=== PATIENT | female | born 1945 | race Caucasian/White ===

== ENCOUNTER → 2017-05-27 13:34 | Outpatient (CLI) | payer MEDICARE, OTHER, SELFPAY ==
[2017-05-27 15:51] LABS: Absolute Lymphocyte Count 0.99 X10^3/ul (0.83-4.51); Absolute Neutrophil Count 5.5 X10^3/uL (2.0-7.7); Basophil# 0.02 X10^3/uL; Basophil% 0.3 % (0-1); Eosinophil# 0.02 X10^3/uL; Eosinophils% 0.3 % (0-5); Hematocrit 37.9 % (37-47); Hemoglobin 12.1 g/dl (12.0-15.0); Lymphocyte # 0.99 X10^3/ul (4.0); Lymphocyte % 14.2 % (19-41); Mean Corp Hgb Conc 31.9 g/gl (32-36); Mean Corpuscular Hgb 32.4 pg (27.0-32.0); Mean Corpuscular Volume 101.6 fL (81-99); Mean Platelet Vol. 9.1 fl (6.2-12.0); Monocyte# 0.43 X10^3/uL; Monocyte% 6.2 % (0-10); Neutrophil % 78.7 % (47-70); Platelet Count 271 K/mm3 (150-450); RBC Distribution Width CV 14.3 % (11.6-14.6); RBC Distribution Width SD 51.3 fl (35.1-43.9); Red Blood Count 3.73 M/mm3 (4.2-5.4)
[2017-05-27 15:52] LABS: POSITIVE COUNT NO; POSITIVE DIFFERENTIAL NO; POSITIVE MORPHOLOGY NO
[2017-05-27 16:20] LABS: ALB/GLOB Ratio 1.1 RATIO (0.9-2.4); AST(SGOT) 21 U/L (15-37); Alanine Aminotransfer ALT/SGPT 32 U/L (13-56); Albumin, Serum 3.5 g/dL (3.2-5.0); Alkaline Phosphatase 88 U/L (45-117); Anion Gap 5 (5-15); BUN 21 mg/dL (7-18); BUN/Creat Ratio 26.1 RATIO (10-20); Chloride 108 mmol/L (98-107); Creatinine, Serum 0.81 mg/dL (0.55-1.02); EST Glomerular Filtration Rate 74 mL/min (>60); Est Glom Filt Rate - Afr Amer 89 mL/min (>60); Globulin 3.3 g/dL (2.2-4.2); Glucose 89 mg/dL (74-106); Potassium 4.6 mmol/L (3.5-5.1); Protein, Total 6.8 g/dL (6.4-8.2); Sodium Level 144 mmol/L (136-145)
== END ==
PROVIDERS: Family Provider Internal Medicine; PCP Internal Medicine; Visit Provider Internal Medicine Rheumatology
DX: M06.09 Rheumatoid arthritis without rheumatoid factor, multiple sites (principal); Z79.899 Other long term (current) drug therapy; M15.9 Polyosteoarthritis, unspecified; I10 Essential (primary) hypertension; D35.2 Benign neoplasm of pituitary gland; E03.9 Hypothyroidism, unspecified; M47.897 Other spondylosis, lumbosacral region; E27.40 Unspecified adrenocortical insufficiency
CPT/HCPCS: 36415; 80053; 85025

== ENCOUNTER → 2017-10-13 10:20 | Outpatient (CLI) | payer MEDICARE, OTHER, SELFPAY ==
[2017-10-13 12:26] LABS: Absolute Neutrophil Count 13.7 X10^3/uL (2.0-7.7); Basophil# 0.03 X10^3/uL; Basophil% 0.2 % (0-1); Eosinophil# 0.23 X10^3/uL; Eosinophils% 1.4 % (0-5); Hematocrit 41.8 % (37-47); Hemoglobin 12.9 g/dl (12.0-15.0); Lymphocyte % 7.4 % (19-41); Mean Corp Hgb Conc 30.9 g/gl (32-36); Mean Corpuscular Hgb 30.6 pg (27.0-32.0); Mean Corpuscular Volume 99.3 fL (81-99); Mean Platelet Vol. 10.8 fl (6.2-12.0); Monocyte% 6.7 % (0-10); Neutrophil # 13.65 X10^3/uL (2.7-7.7); Neutrophil % 83.7 % (47-70); Platelet Count 134 K/mm3 (150-450); RBC Distribution Width CV 14.9 % (11.6-14.6); Red Blood Count 4.21 M/mm3 (4.2-5.4); White Blood Count 16.3 K/mm3 (4.4-11.0)
[2017-10-13 12:29] LABS: POSITIVE COUNT NO; POSITIVE DIFFERENTIAL NO; POSITIVE MORPHOLOGY NO
[2017-10-13 12:43] LABS: ALB/GLOB Ratio 0.9 RATIO (0.9-2.4); AST(SGOT) 141 U/L (15-37); Alanine Aminotransfer ALT/SGPT 197 U/L (13-56); Albumin, Serum 3.4 g/dL (3.2-5.0); Alkaline Phosphatase 485 U/L (45-117); Anion Gap 13 (5-15); BUN 19 mg/dL (7-18); BUN/Creat Ratio 17.3 RATIO (10-20); Calcium,Total 8.9 mg/dL (8.5-10.1); Chloride 101 mmol/L (98-107); EST Glomerular Filtration Rate 52 mL/min (>60); Est Glom Filt Rate - Afr Amer 62 mL/min (>60); Globulin 3.9 g/dL (2.2-4.2); Glucose 162 mg/dL (74-106); Potassium 4.4 mmol/L (3.5-5.1); Protein, Total 7.3 g/dL (6.4-8.2); Sodium Level 142 mmol/L (136-145)
== END ==
PROVIDERS: Family Provider Internal Medicine; PCP Internal Medicine; Visit Provider Internal Medicine Rheumatology
DX: M06.09 Rheumatoid arthritis without rheumatoid factor, multiple sites (principal); M15.9 Polyosteoarthritis, unspecified; I10 Essential (primary) hypertension; D35.2 Benign neoplasm of pituitary gland; E03.9 Hypothyroidism, unspecified; M47.897 Other spondylosis, lumbosacral region; E27.40 Unspecified adrenocortical insufficiency; Z79.899 Other long term (current) drug therapy
CPT/HCPCS: 36415; 80053; 85025

== ENCOUNTER 2017-10-13 16:03 | Emergency (ER) | payer MEDICARE, OTHER, SELFPAY ==
[2017-10-13 16:04] VITALS: BP 158/82; PULSE 110; RESP 18; TEMP 36.8; O2SAT 100; BMI 27.3
--- NOTE | 2017-10-13 17:55 | US_ITS ---
STUDY: ABDOMINAL ULTRASOUND - RIGHT UPPER QUADRANT REASON FOR VISIT: Female, 72 years old. Elevated liver enzymes. TECHNIQUE: Ultrasound evaluation of the right upper quadrant was performed with real-time and static malcolm-scale imaging. TECHNICAL QUALITY: Adequate. COMPARISON: CT scan 06/10/2015. FINDINGS: Liver: The liver measures 13.8 cm. There is a heterogeneous echogenicity of the liver. The bile ducts are within normal limits. There is hepatic color flow. The direction of portal flow is hepatopetal. Several hypoechoic masses are seen. One in the left lobe measures 1.4 cm. 2 in the right lobe measure 2.[address] with contrast is recommended. Gallbladder: Normal distended gallbladder. The gallbladder wall measures 2 mm. There is a negative sonographic Carrillo's sign. There is no pericholecystic fluid. There are no gallstones. There is mild sludge. Common Bile Duct (C.B.D.): The common bile duct measures 4 mm. Pancreas: Normal size of the head, body and tail of the pancreas. There is normal echogenicity of the pancreas. There is no demonstrated pancreatic mass or cyst. Right Kidney: Normal size of the right kidney. The right kidney measures 9.0 cm. Normal renal cortex. The right cortex measures 1.2 cm. There is no demonstrated renal mass or cyst. There is no right hydronephrosis. US/Gallbladder IMPRESSION: Abnormal appearance of the liver which is heterogeneous and appears to have some low-attenuation masses. CT with contrast is recommended. Mild sludge in the gallbladder. Electronically Signed: Chandler Gamino MD at 20:04 EDT , Service support ,
[2017-10-13 19:20] VITALS: PULSE 96; RESP 18; O2SAT 97
--- NOTE | 2017-10-13 20:54 | ED.VISSUMM ---
- ER Visit Summary Date of Service: 10/13/17 Chief Complaint: Abnormal labs History of Present Illness: The patient is a 72 F sent in by housekeeping attendant for abnormal labs of elevated white count along with a elevated liver enzymes. Patient history rheumatoid arthritis followed by Dr. Caballero. Patient is off Humira, she has been on Xeljanz for the past year. However she states she ran out 2 months ago due to a mixup. She saw her housekeeping attendant today. Labs were ordered prior to restarting and continuing her Xeljanz. Last blood draw was in May which was normal per patient. No fevers. No abdominal pain, nausea or vomiting. No recent diarrhea. Patient does take Percocet for breakthrough pain, she has been using it 3 times a day, denies any overuse. Denies alcohol use. No yellowing of skin. Physical Examination: General: Alert and oriented ?3, no acute distress HEENT: Normocephalic, atraumatic. Moist mucosa membranes. Normal conjunctiva. Neck: supple, nontender. Cardiovascular: Regular rate and rhythm, no murmurs Respiratory: Normal breath sounds, symmetric, no distress Abdomen: Soft, nontender, nondistended, no pain in right upper quadrant. Extremities: Nontender, no edema, pulses intact ?4 Neuro: no focal neurological deficits. Test Results: Hepatitis panel pending. Right upper quadrant ultrasound notes mild sludge of gallbladder, there is hypoechoic masses in the liver ?3. Emergency Department Course and Treatment: Outpatient labs from today evaluate no white count 16.7. ALP 45, ALT 197, AST 140s. Treatment Plan: Patient nontoxic, no right upper quadrant tenderness, no jaundice. I spoke with Dr. Caballero, rheumatology had concerns for potential liver etiologies with possible choledocholithiasis. However she has no pain or vomiting. She has been off Xeljanz for 2 months. She does not wish to continue this or any immunosuppressants at this time. She is okay continue her low-dose prednisone. She defers to medicine for workup of transaminitis. I discussed with PCP Dr. Argueta who is aware of the labs and discuss with her housekeeping attendant. With patient already being here she agrees with sending for hepatitis panel which is pending. Right upper quadrant ultrasound was obtained with mild sludge with 3 hypoechoic masses in the liver. This was relayed with the patient to follow-up as an outpatient to be seen on . Prescription oxycodone without the Tylenol will be written for pain control. All questions were answered. Disposition: Discharge Impression: 1. Transaminitis 2. Hyper echoic liver masses This note was generated with [employer] dictation software. It may contain incorrect words, spelling, and punctuation that were not noted in review of the chart prior to signing ED Disposition - Plan for ED Patient: Disposition: Home or Assisted Living Chief Complaint: Abn Labs Diagnosis: Transaminitis, Lesion of liver Prescriptions: Oxycodone [Oxyir] 5 mg PO Q6H PRN PRN #20 tablet PRN Reason: Pain Referrals: Amelia Argueta MD [Primary Care Provider] - 2 Days Additional Instructions: Avoid Tylenol products. Hepatitis panel pending. Ultrasound gallbladder notes mild sludge, there are liver lesions noted ?3. Call on to be seen by Dr. Argueta.
--- NOTE | 2017-10-13 21:02 | ED.DCSUM_ITS ---
- ER Visit Summary Date of Service: 10/13/17 Chief Complaint: Abnormal labs History of Present Illness: The patient is a 72 F sent in by sr. media manager for abnormal labs of elevated white count along with a elevated liver enzymes. Patient history rheumatoid arthritis followed by Dr. Caballero. Patient is off Humira, she has been on Xeljanz for the past year. However she states she ran out 2 months ago due to a mixup. She saw her sr. media manager today. Labs were ordered prior to restarting and continuing her Xeljanz. Last blood draw was in May which was normal per patient. No fevers. No abdominal pain, nausea or vomiting. No recent diarrhea. Patient does take Percocet for breakthrough pain, she has been using it 3 times a day, denies any overuse. Denies alcohol use. No yellowing of skin. Physical Examination: General: Alert and oriented ?3, no acute distress HEENT: Normocephalic, atraumatic. Moist mucosa membranes. Normal conjunctiva. Neck: supple, nontender. Cardiovascular: Regular rate and rhythm, no murmurs Respiratory: Normal breath sounds, symmetric, no distress Abdomen: Soft, nontender, nondistended, no pain in right upper quadrant. Extremities: Nontender, no edema, pulses intact ?4 Neuro: no focal neurological deficits. Test Results: Hepatitis panel pending. Right upper quadrant ultrasound notes mild sludge of gallbladder, there is hypoechoic masses in the liver ?3. Emergency Department Course and Treatment: Outpatient labs from today evaluate no white count 16.7. ALP 45, ALT 197, AST 140s. Treatment Plan: Patient nontoxic, no right upper quadrant tenderness, no jaundice. I spoke with Dr. Caballero, rheumatology had concerns for potential liver etiologies with possible choledocholithiasis. However she has no pain or vomiting. She has been off Xeljanz for 2 months. She does not wish to continue this or any immunosuppressants at this time. She is okay continue her low-dose prednisone. She defers to medicine for workup of transaminitis. I discussed with PCP Dr. Argueta who is aware of the labs and discuss with her sr. media manager. With patient already being here she agrees with sending for hepatitis panel which is pending. Right upper quadrant ultrasound was obtained with mild sludge with 3 hypoechoic masses in the liver. This was relayed with the patient to follow-up as an outpatient to be seen on . Prescription oxycodone without the Tylenol will be written for pain control. All questions were answered. Disposition: Discharge Impression: 1. Transaminitis 2. Hyper echoic liver masses This note was generated with [employer] dictation software. It may contain incorrect words, spelling, and punctuation that were not noted in review of the chart prior to signing ED Disposition - Plan for ED Patient: Disposition: Home or Assisted Living Chief Complaint: Abn Labs Diagnosis: Transaminitis, Lesion of liver Prescriptions: Oxycodone [Oxyir] 5 mg PO Q6H PRN PRN #20 tablet PRN Reason: Pain Referrals: Amelia Argueta MD [Primary Care Provider] - 2 Days Additional Instructions: Avoid Tylenol products. Hepatitis panel pending. Ultrasound gallbladder notes mild sludge, there are liver lesions noted ?3. Call on to be seen by Dr. Argueta.
[2017-10-13 21:17] VITALS: BP 141/103; PULSE 91; RESP 18; O2SAT 96
[2017-10-16 04:08] LABS: HEPATITIS B SURFACE AG Negative (Negative); Hepatitis A IgM Antibody Negative (Negative); Hepatitis B Core AB IgM Negative (Negative)
[2017-10-16 11:59] LABS: Hep C Antibodies <0.1 s/co ratio (0.0-0.9)
== END 2017-10-13 21:18 | disposition home or self-care (01) ==
PROVIDERS: Emergency Provider Emergency Medicine; Family Provider Internal Medicine; PCP Internal Medicine
DX: D72.829 Elevated white blood cell count, unspecified (principal); R16.0 Hepatomegaly, not elsewhere classified; M06.9 Rheumatoid arthritis, unspecified; J44.9 Chronic obstructive pulmonary disease, unspecified; E11.9 Type 2 diabetes mellitus without complications; I10 Essential (primary) hypertension; E03.9 Hypothyroidism, unspecified; Z72.0 Tobacco use; M06.09 Rheumatoid arthritis without rheumatoid factor, multiple sites; M15.9 Polyosteoarthritis, unspecified; D35.2 Benign neoplasm of pituitary gland; M47.897 Other spondylosis, lumbosacral region; E27.40 Unspecified adrenocortical insufficiency; Z79.899 Other long term (current) drug therapy
CPT/HCPCS: 36415; 76705; 80053; 80074; 85025; 99282

== ENCOUNTER 2017-10-27 06:31 | Inpatient (IN) | payer MEDICARE, OTHER, SELFPAY ==
[2017-10-27] VITALS (12 sets, daily range): BP systolic 125–172; BP diastolic 58–77; PULSE 87–100; RESP 14–18; TEMP 37.2–37.4; O2SAT 93–97; BMI 25.4; BMI 25.0
[2017-10-27 06:40] LABS: Bedside Glucose 73 mg/dL (70-110)
--- NOTE | 2017-10-27 06:41 | NURSING ---
NO LW OR POA
--- NOTE | 2017-10-27 06:49 | EKG12_ITS ---
Test Reason : OVERDOSE Blood Pressure : / mmHG Vent. Rate : 082 BPM Atrial Rate : 082 BPM P-R Int : 154 ms QRS Dur : 070 ms QT Int : 376 ms P-R-T Axes : 051 013 039 degrees QTc Int : 439 ms Normal sinus rhythm Normal ECG Confirmed by ASTRID SANTOS, CECIL ([id number]), industrial editor KUMAR TOWNSEND ([id number]) on 10/30/2017 1:22:19 PM Referred By: JULIANA Confirmed By:CECIL RESENDIZ MD
--- NOTE | 2017-10-27 06:49 | CT_ITS ---
STUDY: CT BRAIN WITHOUT CONTRAST REASON FOR EXAM: Female, 72 years old. Status post fall, took too many oxycodone. History of diabetes, hypertension, rheumatoid, COPD, CAD. RADIATION DOSAGE (If Supplied By Facility): CTDIvol = ( 60.81 ) mGy, DLP = ( 1468.02 ) mGycm TECHNIQUE: Transaxial CT imaging of the brain was performed without administration of intravenous contrast material. Multiplanar coronal and sagittal images were reformatted. Individualized dose optimization techniques were used for this CT. COMPARISON: None. FINDINGS: Normal soft tissue structures. Normal calvarium. There is mild cerebral atrophy with widening of the extra-axial spaces and ventricular dilatation. There are areas of decreased attenuation within the white matter tracts of the supratentorial brain, consistent with microvascular disease changes. Remote infarct right thalamus. Normal brainstem. There is mild cerebellar atrophy. There is no intracranial hemorrhage. There are no findings of an acute ischemic infarction. Normal visualized paranasal sinuses. Mild chronic opacification right inferior mastoid air cells. The left mastoid air cells. CT/Brain/Head without Contrast IMPRESSION: Chronic involutional changes of the brain. 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 There is no acute intracranial pathology. Electronically Signed: Pratibha De La Cruz MD at 7:47 EDT , Service support ,
--- NOTE | 2017-10-27 06:49 | RAD_ITS ---
STUDY: X-RAY CHEST REASON FOR EXAM: Female, 72 years old. Back pain and recent fall. TECHNIQUE: Single AP portable view of the chest. COMPARISON: February 14, 2016. FINDINGS: The lungs are hyperexpanded. There is subtle interstitial thickening present in both lungs. There is no demonstrated pleural abnormality. Normal size heart. Normal mediastinum and pretty. Normal visualized pulmonary arteries. There is atherosclerotic calcification of the aortic arch with tortuosity. There is demineralization of the osseous structures. There appears to be a neurostimulator within the midthoracic spinal canal. There is mild curvature of the thoracic spine with convexity towards the right. There are mild degenerative changes of both shoulders. There is no demonstrated abnormality of the visualized soft tissue structures of the upper abdomen. RAD/Chest 1 View (Portable) IMPRESSION: No radiographic evidence of acute cardiopulmonary disease. Electronically Signed: Jaylyn Iglesias MD at 7:38 EDT , Service support ,
--- NOTE | 2017-10-27 06:55 | ED.VISSUMM ---
- ER Visit Summary Date of Service: 10/27/17 Chief Complaint: [Fall and general weakness] History of Present Illness: The patient is a 72 F [presents the emergency department with complaint of a fall this morning. Patient states that she could not get back up and she could not get her to help her because he is deaf and had his cochlear implant out for the night. Patient apparently called her brother who told her to call EMS. Eventually patient was able to get up and use the phone to call EMS. Patient also gives history of chronic pain issues related to arthritis and chronic back pain. Patient has had her medications changed around recently by Dr. Hassan. Patient does take narcotic pain medications but denies taking any more than she is prescribed. Apparently patient's brother had mentioned that he was concerned that the patient was taken to much narcotic pain medicine.] states that he feels the patient should be admitted to assisted as she can only ambulate with assistance and he believes she would benefit from placement. Physical Examination: [HEENT-PERRLA, EOMI. Cranial nerves II through XII grossly intact. TMs clear. Mucous membranes moist. No adenopathy. Cardiovascular-regular rate and rhythm without murmur or ectopy Lungs-clear to auscultation, chest wall stable without crepitus or subcu emphysema Abdomen-normoactive bowel sounds, soft, nontender, no rebound or rigidity, no peritoneal signs. Extremities-intact ?4, normal range of motion, normal pulses, atraumatic] Test Results: [Pending] Emergency Department Course and Treatment: [Care of patient turned over to morning physician awaiting lab results, CT scan of the brain without contrast, and final disposition.] Treatment Plan: [] Disposition: [] Impression: [] This note was generated with [employer] dictation software. It may contain incorrect words, spelling, and punctuation that were not noted in review of the chart prior to signing ED Disposition - Plan for ED Patient: Chief Complaint: Overdose Referrals: Amelia Argueta MD [Primary Care Provider] -
--- NOTE | 2017-10-27 06:59 | ED.DCSUM_ITS ---
- ER Visit Summary Date of Service: 10/27/17 Chief Complaint: [Fall and general weakness] History of Present Illness: The patient is a 72 F [presents the emergency department with complaint of a fall this morning. Patient states that she could not get back up and she could not get her to help her because he is deaf and had his cochlear implant out for the night. Patient apparently called her brother who told her to call EMS. Eventually patient was able to get up and use the phone to call EMS. Patient also gives history of chronic pain issues related to arthritis and chronic back pain. Patient has had her medications changed around recently by Dr. Hassan. Patient does take narcotic pain medications but denies taking any more than she is prescribed. Apparently patient's brother had mentioned that he was concerned that the patient was taken to much narcotic pain medicine.] states that he feels the patient should be admitted to residential as she can only ambulate with assistance and he believes she would benefit from placement. Physical Examination: [HEENT-PERRLA, EOMI. Cranial nerves II through XII grossly intact. TMs clear. Mucous membranes moist. No adenopathy. Cardiovascular-regular rate and rhythm without murmur or ectopy Lungs-clear to auscultation, chest wall stable without crepitus or subcu emphysema Abdomen-normoactive bowel sounds, soft, nontender, no rebound or rigidity, no peritoneal signs. Extremities-intact ?4, normal range of motion, normal pulses, atraumatic] Test Results: [Pending] Emergency Department Course and Treatment: [Care of patient turned over to morning physician awaiting lab results, CT scan of the brain without contrast, and final disposition.] Treatment Plan: [] Disposition: [] Impression: [] This note was generated with [employer] dictation software. It may contain incorrect words, spelling, and punctuation that were not noted in review of the chart prior to signing ED Disposition - Plan for ED Patient: Chief Complaint: Overdose Referrals: Amelia Argueta MD [Primary Care Provider] -
[2017-10-27] MEDS: 0.9% Normal Saline 1,000 ML 150 ML IV (07:01)
[2017-10-27 07:03] LABS: Absolute Lymphocyte Count 1.32 X10^3/ul (0.83-4.51); Absolute Neutrophil Count 11.2 X10^3/uL (2.0-7.7); Basophil# 0.02 X10^3/uL; Basophil% 0.1 % (0-1); Eosinophil# 0.42 X10^3/uL; Hematocrit 39.1 % (37-47); Hemoglobin 12.7 g/dl (12.0-15.0); Lymphocyte # 1.32 X10^3/ul (4.0); Lymphocyte % 9.3 % (19-41); Mean Corp Hgb Conc 32.5 g/gl (32-36); Mean Corpuscular Volume 92.4 fL (81-99); Mean Platelet Vol. 10.4 fl (6.2-12.0); Monocyte# 1.05 X10^3/uL; Monocyte% 7.4 % (0-10); Neutrophil # 11.23 X10^3/uL (2.7-7.7); Neutrophil % 79.6 % (47-70); POSITIVE COUNT NO; POSITIVE DIFFERENTIAL NO; POSITIVE MORPHOLOGY NO; Platelet Count 58 K/mm3 (150-450); RBC Distribution Width CV 15.4 % (11.6-14.6); RBC Distribution Width SD 52.1 fl (35.1-43.9); Red Blood Count 4.23 M/mm3 (4.2-5.4); White Blood Count 14.1 K/mm3 (4.4-11.0)
[2017-10-27 07:07] LABS: Bacteria 0 SEEN /hpf (None Seen); Mucous, Urine 0 SEEN /hpf (<or=2+); Red Blood Cells-Urine 0 SEEN /hpf (0-5); Squamous Epithelial Cells - UA 0 SEEN /hpf (5-10); White Blood Cells 0 SEEN /hpf (0-5)
[2017-10-27 07:16] LABS: Color, Urine Yellow (Yellow); Glucose, Dipstick NEGATIVE (Normal); Ketone-Dipstick 5 mg/dl (Negative); Leukocyte Esterase-Dipstick Negative /ul (Negative); Nitrite-Dipstick Negative (Negative); Occult Blood-Urine Negative /ul (Negative); Protein-Dipstick 15 mg/dl (Negative); Specific Gravity, Urine 1.015 (1.002-1.030); Urine Bilirubin Dipstick Negative (Negative); Urine Clarity Clear (Clear); Urine Urobilinogen Normal (Normal)
[2017-10-27 07:18] LABS: ALB/GLOB Ratio 0.7 RATIO (0.9-2.4); AST(SGOT) 107 U/L (15-37); Alanine Aminotransfer ALT/SGPT 114 U/L (13-56); Albumin, Serum 2.9 g/dL (3.2-5.0); Alkaline Phosphatase 559 U/L (45-117); Anion Gap 10 (5-15); BUN 34 mg/dL (7-18); BUN/Creat Ratio 27.6 RATIO (10-20); Chloride 98 mmol/L (98-107); Creatinine, Serum 1.23 mg/dL (0.55-1.02); EST Glomerular Filtration Rate 45 mL/min (>60); Est Glom Filt Rate - Afr Amer 55 mL/min (>60); Estimated Creatinine Clearance 28.82 ml/min; Globulin 3.9 g/dL (2.2-4.2); Glucose 105 mg/dL (74-106); Lipase 126 U/L (73-393); Potassium 4.1 mmol/L (3.5-5.1); Protein, Total 6.8 g/dL (6.4-8.2); Sodium Level 134 mmol/L (136-145)
--- NOTE | 2017-10-27 10:16 | NURSING ---
DR RICHARD CANALES
--- NOTE | 2017-10-27 10:18 | ED.VISSUMM ---
- ER Visit Summary Date of Service: 10/27/17 Addendum patient was signed over to me. She was found to have an intermediate troponin and thrombocytopenia, I will admit for further workup of these, I also have social work starting on placement to senior care. This note was generated with [employer] dictation software. It may contain incorrect words, spelling, and punctuation that were not noted in review of the chart prior to signing ED Disposition - Plan for ED Patient: Chief Complaint: Overdose Referrals: Amelia Argueta MD [Primary Care Provider] -
--- NOTE | 2017-10-27 10:18 | NURSING ---
MED SURG INT TROP, WEAKNESS PARKER/RICHARD
--- NOTE | 2017-10-27 10:19 | PCM.HP.STD ---
Problem List (1) General weakness Status: Acute (2) Benign essential hypertension Status: Chronic (3) Chronic obstructive lung disease Status: Chronic (4) Hypothyroidism Status: Chronic (5) Rheumatoid arthritis Status: Chronic (6) Type II diabetes mellitus Status: Chronic History of Present Illness Date of Admission: 10/27/17 Chief Complaint: Generalized body aches The patient is a 72 year old F with past medical history significant for hypertension, hypothyroidism, rheumatoid arthritis who presented with generalized body aches. Patient reports increasing pain since been taking of her Biologics for her rheumatoid arthritis by her ice resurfacing machine operators. She had apparently been started on tapering dose of steroid to help with inflammation however her pain continues to worsen. Patient also reports findings of liver lesions necessitating the discontinuation of the above medications. Her PCP had also found a breast mass for which patient was due to undergo evaluation. She was seen and evaluated in the emergency department found to have indeterminant troponin decision was made to admit patient for subsequent management in the hospital. Past Medical History Past Medical History (Chronic Problems): Chronic Problems Diastasis recti (Chronic) Type II diabetes mellitus (Chronic) Chronic obstructive lung disease (Chronic) Hypothyroidism (Chronic) Rheumatoid arthritis (Chronic) Benign essential hypertension (Chronic) Allergies shellfish derived Allergy (Verified 10/27/17 06:36) Shortness of breath Sulfa (Sulfonamide Antibiotics) Allergy (Verified 10/27/17 06:36) Rash furosemide [From Lasix] Adverse Reaction (Verified 10/27/17 06:36) Itching Home Medications: Ambulatory Orders Medication Instructions Recorded Levothyroxine [Synthroid] 75 mcg PO UD 05/18/14 Potassium Chloride [K-Dur] 20 meq PO DAILY 05/18/14 Valsartan [Diovan] 320 mg PO DAILY 05/18/14 Gabapentin [Neurontin] 600 mg PO TID PRN 08/18/14 Zolpidem Tartrate [Ambien] 10 mg PO QHS 08/18/14 Albuterol IH (ProAir) [Proair Hfa] 1 - 2 puff INHALATION Q4H PRN PRN 12/29/14 Aspirin [Aspirin, Baby] 81 mg PO DAILY@0800 12/29/14 Ondansetron [Zofran] 8 mg PO Q8H PRN PRN #30 tablet 12/30/14 Pantoprazole Sodium [Protonix] 40 mg PO BID #90 tablet 12/30/14 predniSONE tablet 5 mg PO BIDCM 01/19/16 Atorvastatin Calcium [Lipitor] 10 mg PO QHS 10/27/17 Duloxetine Hcl [Cymbalta] 60 mg PO BID 10/27/17 Fluticasone/Vilanterol [Breo 1 each IH DAILY 10/27/17 Ellipta 200-25 Mcg INH] Folic Acid 1 mg PO BIDCM 10/27/17 Oxycodone HCl/Acetaminophen 1 tablet PO Q6H PRN PRN 10/27/17 [Percocet 5/325] Tofacitinib Citrate [Xeljanz Xr] 11 mg PO DAILY 10/27/17 Umeclidinium [place] [Incruse 62.5 mcg IH DAILY 10/27/17 Ellipta] predniSONE tablet 2.5 mg PO QHS 10/27/17 Surgical History: hysterectomy, total hip arthroplasty, - - Back surgery. 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 LOAN ORIGINATOR history Smoking Status: Former smoker - *Family History Maternal History Items: No pertinent history Paternal History Items: No pertinent history Review of Systems Constitutional: Reports: Anorexia, Malaise, Weakness, Fatigue HEENT: Denies: Head Aches, Sinus Congestion, Sinus Drainage Cardiovascular: Reports: Chest Pain Respiratory: Denies: Cough, Shortness of breath at rest, Shortness of breath upon exertion, Sputum production Gastrointestinal: Denies: Abdominal Pain, Hematemesis, Hematochezia, Nausea, Melena, Vomiting Genitourinary: Denies: Dysuria, Frequency, Hematuria, Urgency Musculoskeletal: Reports: Joint Pain Skin: Denies: Rash Neurological: Denies: Focal weakness, Numbness, Tingling Psychiatric: Reports: Anxiety Hematologic/ Lymphatic: Denies: Easy Bruising, Easy Bleeding VTE Information - Inpt Only VTE Present on Admission: No VTE Mechan Device Prophylaxis: Knee High LARRY Hose VTE Pharm Prophylaxis ordered?: Yes Patient Problems: Active and Suspected Problems General weakness (Acute) Objective: GENERAL: cooperative HEENT: Clear conjunctiva, NECK; supple, normal thyroid, CHEST: Clear to auscultation bilaterally, HEART: Regular S1 S2, no audible murmurs ABDOMEN: soft, non-tender, normoactive bowel sounds, RECTAL: deferred EXTREMITIES: No edema, no clubbing, no cyanosis. SENIOR MAINTENANCE MACHINIST: Awake; no lateralizing signs. SKIN: No Rash - Physical Exam Vital Signs Temp Pulse Resp BP Pulse Ox 99.3 F H 87 14 153/58 H 97 10/27/17 06:32 10/27/17 08:43 10/27/17 08:43 10/27/17 08:43 10/27/17 08:43 Oxygen Delivery Method Room Air Weight: 59 kg Body Mass Index (BMI) 25.4 Laboratory Tests Past 24 Hrs 10/27/17 10/27/17 10/27/17 06:40 06:40 07:00 WBC 14.1 H RBC 4.23 Hgb 12.7 Hct 39.1 MCV 92.4 MCH 30.0 MCHC 32.5 RDW 15.4 H RDW Differential 52.1 H Plt Count 58 L MPV 10.4 Immature Gran % (Auto) 0.600 Neut % (Auto) 79.6 H Lymph % (Auto) 9.3 L Evans % (Auto) 7.4 Eos % (Auto) 3.0 Baso % (Auto) 0.1 Absolute Neuts (auto) 11.2 H Absolute Lymphs (auto) 1.32 Total Counted Not Reportable Sodium 134 L Potassium 4.1 Chloride 98 Carbon Dioxide 26.0 Anion Gap 10 BUN 34 H Creatinine 1.23 H Estim Creat Clear Calc 28.82 Est GFR (MDRD) Af Amer 55 L Est GFR (MDRD) Non-Af 45 L BUN/Creatinine Ratio 27.6 H Glucose 105 Calcium 9.0 Total Bilirubin 1.00 AST 107 H ALT 114 H Alkaline Phosphatase 559 H Troponin I 0.071 H Total Protein 6.8 Albumin 2.9 L Globulin 3.9 Albumin/Globulin Ratio 0.7 L Lipase 126 Urine Color Yellow Urine Clarity Clear Urine pH 5.0 Ur Specific [place] 1.015 Urine Protein 15 H Urine Glucose (UA) NEGATIVE Urine Ketones 5 H Urine Occult Blood Negative Urine Nitrite Negative Urine Bilirubin Negative Urine Urobilinogen Normal Ur Leukocyte Esterase Negative Urine RBC 0 SEEN Urine WBC 0 SEEN Ur Squamous Epith Cells 0 SEEN Urine Bacteria 0 SEEN Urine Mucus 0 SEEN POC Glucose 10/27/17 06:37 POC Glucose 73 Assessment/Plan All Active Problems General weakness (Acute) Intractable nausea (Acute) Cellulitis (Acute) Nausea & vomiting (Resolved) Patient is a 72-year-old lady with past medical history significant for hypertension, chronic pain syndrome, rheumatoid arthritis, who presents with progressive generalized weakness found to have elevated troponin on admission 1. Adult failure to thrive in the context of multiple medical comorbidities patient has been admitted to monitored bed requested for PT OT evaluation and director social welfare to assist with discharge plan 2. Elevated troponin suspected to be secondary to demand ischemia. 3. Elevated d-dimer CT of the chest with contrast ordered to rule out PE 4. Thrombocytopenia consult placed to oncology 5. Right breast mass suspected to be malignant did discuss with patient PCP Dr. Argueta plan is for patient to be evaluated by general surgery and oncology as outpatient 6. COPD did continue with patient home aerosol regimen, please on supplemental oxygen titrated to keep oxygen saturation greater than 90 7. Hypertension-blood pressure controlled, home medications continued with dose adjustment as needed 8. Chronic pain syndrome 6. Depression patient is on Cymbalta 10. Hypothyroidism-patient is on levothyroxine home dose continued 11. Rheumatoid arthritis patient is followed by Dr. Lui as outpatient 12. DVT prophylaxis held off initiating chemoprophylaxis in view of patient significant low platelet count Code Visit Inpatient E&M: 72192 Init Hosp L3
--- NOTE | 2017-10-27 10:20 | NURSING ---
GEN WEAKNESS, ELEVATED TROP PCU [facility]
--- NOTE | 2017-10-27 10:26 | CM.ED ---
CM INITIAL ASSESSMENT: Patient evaluated in the ED with and sister, Vanessa, at bedside. Home: Patient states she lives in a two story home with her . There are approximately 10 steps in the home. Concern expressed that patient's is deaf. Patient fell last night and was unable to get her 's attention for help. HHS/Aides: Denies DME: Patient states she uses a cane. She states she had to begin using a walker yesterday. PCP: Dr. Argueta Patient states that, in August, Dr. Argueta changed her RA medications due to her abnormal liver tests. She states she's had increasing pain and functional decline since then. Patient fell last night, attempting to get to the restroom, and was unable to get the attention of her deaf . Patient and family state they feel she needs SNF placement. Her preference would be [facility]. She was a resident, in assisted living, there previously. I discussed Medicare requirements and that we cannot guarantee the patient will have a qualifying stay for SNF coverage. All present state understanding. DC Plan: Undetermined. Potentially SNF. Preference [facility], if SNF recommended. CM will continue to follow for safe and effective discharge planning.
[2017-10-27] MEDS: Morphine 2 MG/ML Syringe IV ×2 (10:31→14:17)
--- NOTE | 2017-10-27 10:49 | NURSING ---
[id number] called er electrical discharge machine operator to accept patient
--- NOTE | 2017-10-27 11:18 | CT_ITS ---
STUDY: CTA OF THE ABDOMINAL AORTA AND BILATERAL LOWER EXTREMITIES REASON FOR EXAM: Female, 72 years old. Liver mass. RADIATION DOSAGE (If Supplied By Facility): CTDIvol = ( 11.44 ) mGy, DLP = ( 980.11 ) mGycm TECHNIQUE: Axial CT angiography multi-detector data acquisition was obtained from the diaphragm to the ischial tuberosities following intravenous administration of 100 ml of Isovue 370 contrast. Axial images and MIP images were reconstructed from the axial data set. Post-processing of the angiographic images was performed, with multiplanar reformation and 3D reconstruction. Individualized dose optimization techniques were used for this CT. TECHNICAL QUALITY: Good COMPARISON: CT of the abdomen, June 10, 2015. Abdominal ultrasound, October 13, 2017. Descriptors of Narrowing: None (0%) Mild (< 50%) Moderate (50-70%) Severe (70-90%) Subtotal/Total Occlusion (90-100%) Non-Evaluable (technically non-diagnostic FINDINGS: Abdominal aorta: There is diffuse atherosclerotic changes of the abdominal aorta with mild tortuosity. There is no stricture aneurysm or dissection. Celiac and superior mesenteric arteries: No demonstrated narrowing. Inferior mesenteric artery: No demonstrated narrowing. Right renal artery(arteries): There is atherosclerotic changes without significant stenosis. Left renal artery(arteries): Atherosclerotic changes of mild stenosis. Right common iliac artery: Atherosclerotic changes with mild stenosis. Right external iliac artery: No demonstrated narrowing. Right internal iliac artery: Atherosclerotic changes with mild stenosis. Left common iliac artery: Atherosclerotic changes with minimal stenosis. Left external iliac artery: No demonstrated narrowing. Left internal iliac artery: Atherosclerotic changes with mild stenosis. The lung bases are clear. The heart is normal size. There is a large type I hiatal hernia in the retrocardiac space. The liver is normal in size and contour. There are multiple hypodensities throughout the liver with the appearance of metastatic disease. The largest, in segment 6 of the liver measures 3.9 x 3 x 3.3 cm. There is no enhancing mass. There is no biliary ductal dilatation. The gallbladder and extrahepatic biliary ductal system is unremarkable. There is asymmetric enhancement of the spleen which may be secondary to infarction. There is a single calcified granuloma is seen within the spleen. There is a 3 x 3.3 x 2.8 cm nonenhancing hypointense mass in the tail the pancreas (images 91 through 100 series 2).. The pancreas appears otherwise unremarkable. Normal adrenal glands. There are small cortical cysts seen in both kidneys without enhancing mass renal calculi or obstruction. Normal IVC and retroperitoneum. As stated above there is a large type I hiatal hernia in the retrocardiac space. The distal stomach is below the diaphragm and appears normal. Normal small bowel. The colon is redundant. Feces is seen throughout the colon without mass or obstruction. The appendix is not visualized. Imaging of the deep pelvis is limited due to scatter artifact bilateral artificial hips. The bladder uterus and adnexa are not visualized. There is no obvious free air or free fluid within the peritoneal cavity. Normal abdominal wall. There are degenerative changes of the lumbar spine with levoscoliosis. IMPRESSION: 1. Multiple hypodensities throughout the liver suspected shoes for metastatic disease. These were not evident on the prior examinations. 2. Asymmetric enhancement of the spleen. Question infarction. 3. Low-attenuation mass in the tail pancreas not previously seen. Primary malignancy versus metastatic disease. 4. Stable hiatal hernia. 5. Bilateral renal cysts. 6. Atherosclerotic tortuosity of the thoracic aorta without aneurysm or dissection. 7. Limited visualization of pelvis due to scatter artifact from bilateral artificial hips. 8. Levoscoliosis and degenerative changes of the lumbar spine. This appears stable. N.B. : Jen Escalante, [facility]- In-Patient RN, confirmed on 11/02/2017 22:57:10 (ET) that the referring physician received the results and did not require a verbal consultation. Electronically Signed: Derrell Flores DO at 17:18 EDT Tel [phone], Service support , STUDY: CTA CHEST REASON FOR EXAM: Female, 72 years old. Question liver mass. RADIATION DOSAGE (If Supplied By Facility): CTDIvol = ( 11.44 ) mGy, DLP = ( 980.11 ) mGycm TECHNIQUE: The examination was performed with the intravenous administration of 100 ml of Isovue 370 contrast material. Post-processing of the angiographic images was performed, with multiplanar reformation and 3D reconstruction. Individualized dose optimization techniques were used for this CT. COMPARISON: CTA of the chest, December 30, 2014. FINDINGS: There is a small saddle embolism of the main pulmonary arteries. This extends from the orifice of one of the left upper lobe peripheral pulmonary arteries across the bifurcation and into the distal portion of the right main pulmonary artery. There is no obvious peripheral right pulmonary artery thrombosis. There is minimal nonocclusive thrombus in her forearm arteries feeding the posterior aspect of the left upper lobe. Atherosclerotic tortuosity of the thoracic aorta without aneurysm. There is no demonstrated aortic dissection. Normal heart and pericardium. There is a large retrocardiac type I hiatal hernia. Normal mediastinum. Normal hilar regions. Normal visualized trachea and bronchi. The lungs are well expanded. There is a 2 mm calcified granuloma along the pleural surface of the posterior left upper lobe. No other masses or infiltrates are seen. Normal pleura. Normal chest wall structures. There are degenerative changes of thoracic spine. There are multiple hypodense masses within the liver. There is a soft tissue mass in the tail the pancreas with heterogenous enhancement of the spleen. Please refer to the CTA of the abdomen performed concurrently and dictated separately for further discussion of subdiaphragmatic contents. CT/CTA Pelvis W/WO Contrast IMPRESSION: 1. Saddle embolus of the pulmonary arteries. There is minimal peripheral pulmonary artery thrombosis. 2. Atherosclerosis of the thoracic aorta without aneurysm or dissection. 3. Single calcified granuloma in the left upper lobe. Lungs are otherwise clear. 4. Large retrocardiac hiatal hernia. 5. Hypodense masses within the liver. 6. Pancreatic tail mass. N.B. : Jen Escalante, [facility]- In-Patient RN, confirmed on 11/02/2017 22:57:10 (ET) that the referring physician received the results and did not require a verbal consultation. Electronically Signed: Derrell Flores DO at 17:04 EDT Tel [phone], Service support ,
--- NOTE | 2017-10-27 11:18 | ECHOD_ITS ---
Reason For Study: Chest Pain Procedure This was a 2D Doppler, Color Flow transthoracic echocardiogram. The study was technically difficult. Echo done with patient sitting upright in bed due to excruciating back pain. Exam performed portable in patient room. Left Ventricle Normal size and thickness. The estimated ejection fraction is 75 %. Stage 1 diastolic dysfunction. No regional wall motion abnormalities noted. Right Ventricle Normal size and thickness. Normal systolic function. Atria The left atrium is mildly enlarged. Normal right atrium. Normal atrial septum. Mitral Valve The mitral valve is structurally normal. No prolapse or stenosis seen. Tricuspid Valve Normal tricuspid valve. Unable to estimate RV systolic pressure/pulmonary artery pressure due to technically difficult study. Aortic Valve Trisinus/trileaflet aortic valve. Mild diffuse aortic valve thickening. Pulmonic Valve Normal pulmonic valve. Great Vessels Normal aortic root. Normal arch. Normal inferior vena cava. Inferior vena cava collapse with sniff. Pericardium/Pleural No pericardial effusion. MMode/2D Measurements & Calculations LVIDd: 2.8 cm IVSd: 1.1 cm Ao root diam: 2.8 cm LVIDs: 1.5 cm LVPWd: 0.96 cm FS: 46.5 % LAV(MOD-sp4): 69.4 ml LA A4 area: 22.4 cm2 Time Measurements MV dec time: 0.29 sec Doppler Measurements & Calculations MV E max mehrdad: 84.1 cm/sec Lat Peak E' Mehrdad: 4.9 cm/sec Med Peak E' Mehrdad: 4.3 cm/sec MV A max mehrdad: 151.0 cm/sec E/E' lat: 17.2 E/E' med: 19.7 MV E/A: 0.56 MV V2 max: 205.1 cm/sec MV P1/2t max mehrdad: 136.8 cm/sec Ao V2 max: 158.9 cm/sec MV max P.8 mmHg MV P1/2t: 54.3 msec Ao max P.1 mmHg MV V2 mean: 109.8 cm/sec MV dec slope: 737.9 cm/sec2 Ao V2 mean: 110.2 cm/sec MV mean P.8 mmHg MVA(P1/2t): 4.1 cm2 Ao mean P.4 mmHg MV V2 VTI: 37.4 cm Ao V2 VTI: 27.2 cm LV V1 max: 132.1 cm/sec PA V2 max: 100.2 cm/sec LV V1 max P.0 mmHg LV V1 mean P.0 mmHg LV V1 mean: 78.1 cm/sec LV V1 VTI: 23.8 cm Interpretation Summary The estimated ejection fraction is 75 %. Stage 1 diastolic dysfunction. The left atrium is mildly enlarged. Unable to estimate RV systolic pressure/pulmonary artery pressure due to technically difficult study. Compared to echo report dated 02/14/2016, no appreciable changes noted. Ordering Physician: Erick Swann Referring Physician: Amelia Argueta Performed By: Benitez Morales RCS
[2017-10-27 12:30] LABS: AST(SGOT) 92 U/L (15-37); Alanine Aminotransfer ALT/SGPT 98 U/L (13-56); Albumin, Serum 2.7 g/dL (3.2-5.0); Alkaline Phosphatase 511 U/L (45-117); Bilirubin, Direct 0.36 mg/dL (0.00-0.30); Globulin 3.5 g/dL (2.2-4.2); Protein, Total 6.2 g/dL (6.4-8.2); Thyroid Stim Hormone (TSH) 2.44 uIU/mL (0.358-3.74)
[2017-10-27 12:45] LABS: D-Dimer Quantitative (DVT/PE) > 20.00 FEU/ug/m (0.27-0.49)
[2017-10-27] MEDS: 0.9% Normal Saline 1,000 ML 100 ML IV (13:02)
--- NOTE | 2017-10-27 15:12 | ONC.CONS.INP ---
Consult Referring Physician: Dr. Swann Subjective Date of Service:: 10/27/17 Chief Complaint: Weakness History of Present Illness: Ms. Sailaja Stephenson is a 72 year old woman with a PMH significant for DM, HTN, COPD, hypothyroidism and rheumatoid arthritis. States she was in her usual state of health until recently she was taken off Xeljanz and RA pain increased, thus a change was made to her narcotic pain medication. Reports x 2 days she has experienced generalized weakness. As a result, she presented to [facility] ED 10/27/17 c/o inability to ambulate independently. She was found to have mildly elevated Troponin and thrombocytopenia, platelet count of 58,000. When questioned further, specifically about any hematology/oncology family history and the presence of a right breast mass and liver lesions noted in her records, patient responds I have been asked so many questions today, I am not answering any more. Past Medical History: Chronic Problems Diastasis recti (Chronic) Type II diabetes mellitus (Chronic) Chronic obstructive lung disease (Chronic) Hypothyroidism (Chronic) Rheumatoid arthritis (Chronic) Benign essential hypertension (Chronic) Past Medical/Surgical History: Past Medical History - Most Recent Inpatient Visit Past Medical History Start: 10/27/17 10:53 Text: Status: Complete Freq: ONCE Protocol: Document 10/27/17 11:09 DS (Rec: 10/27/17 11:16 DS [id number]) BMI Required to complete PMH What is Patient's BMI 25 Past Medical History Unable History Recalled No Query Text:Pt Unable/Family Not Present Neurologic Medical History Hx Stroke/TIA No Hx Dementia/Alzheimer's No Hx Parkinson's Disease No Hx Seizures No Hx Multiple Sclerosis No Hx Migraines Yes: YRS AGO Comments spinal cord stimulator -for back problems scoliosis Cardiac Medical History VTE Present on Admission No Hx of Deep Vein Thrombosis/VTE/PE No Hx Hypertension Yes Hx Chest Pain/Angina No Hx Heart Attack No Hx Cardiac Surgery/Stents/Etc. No Hx Heart Failure No Hx Pacemaker/AICD No Hx Irregular Heartbeat and/or Afib No Hx Anticoagulant Therapy Yes: ASPIRIN Query Text:(Coumadin, Aspirin, Plavix, Xarelto, etc.) Hx Pain in Legs when Walking/Leg Cramps Yes: N/T Comments osteoarthrhitis Respiratory Medical History Hx COPD Yes Hx Emphysema Yes Hx Smoking No: QUIT 2014 Smoking Status Former smoker Hx Smoking Cessation Counseling No Hx Smoking Exposure No Hx Tobacco Use in last 12 months No Hx of Pipe Smoking No Hx Sleep Apnea No CPAP No BIPAP No Do you snore loudly (louder than talking No or can be heard through closed doors)? Do you often feel tired/ fatigued/ Yes sleepy during daytime? Has anyone observed you stop breathing No during sleep? STOP Results Positive GI Medical History Hx Ulcer Yes: AND HERNIA Hx Hepatitis No Hx Cirrhosis No Hx GI Bleed No Hx Unplanned Weight Loss No Genitourinary Medical History Indwelling Catheter in Place on Arrival/ No Admission Hx Renal Disease No Hx Dialysis No Musculoskeletal History Hx Arthritis Yes: RA Hx Rheumatoid Arthritis Yes Endocrine Medical History Hx Diabetes Yes Hx Thyroid Disease Yes Hematologic Medical History Hx of Blood Transfusion Yes Hx of Transfusion in last 3 Months No Ever experience any problems with No transfusion(s)? Hx of Preganancy in last 3 Months N/A Nurse Filling Out Transfusion & DSLOAN Questions: Date: 10/27/17 Time: 11:15 Psycho/Social Medical History Hx Depression Yes Hx Anxiety Yes Hx Behavior Disorder No Hx Alcohol Use No Hx Substance Use No Other Medical History Hx Blood Disorders No Hx Anemia Yes Hx Cancer No Hx Drug Resistant Organism No Wound/Pressure Injury Present on Arrival No /Admission Query Text:If yes, chart assessment in Shift/Clinical Findings Central Line/PICC/VAD Present on Arrival No /Admission Antibiotics within last 7 days? No Methicillin Resistant Staphylococcus aureus Screening Active MRSA No Risk for Readmission Number of Risk Factors 11 At Risk for Readmission Patient is At Risk For Readmission Patient is eligible for Call Back Y Maternal Family History: No pertinent history Paternal Family History: No pertinent history - Social History Smoking Status: Former smoker Allergies/Adverse Reactions: Allergy/AdvReac Type Severity Reaction Status Date / Time furosemide [From Lasix] Allergy Itching Verified 10/27/17 11:39 shellfish derived Allergy Shortness Verified 10/27/17 06:36 of breath Sulfa (Sulfonamide Allergy Rash Verified 10/27/17 06:36 Antibiotics) Review of Systems Constitutional:: Reports: Weakness, Weight loss - Recently on Trulicity. Denies: Fever, Sweats, Appetite change, Chills Cardiovascular:: Reports: Dyspnea on exertion - unchanged from baseline. Denies: Chest pain, Palpitations, Orthopnea, PND, Shortness of breath Respiratory: Denies: Cough, Hemoptysis, Shortness of Breath, Wheezing Gastrointestinal:: Reports: Abdominal pain - x several weeks, RUQ to midline. Denies: Nausea, Vomiting, Diarrhea, Constipation, Melena, Hematochezia Genitourinary: Denies: Dysuria, Hematuria, Abnormal vaginal bleeding, Flank pain Musculoskeletal:: Reports: Back pain, Arthralgia Skin: Denies: Rash, Skin Changes, Wounds Neurological:: Denies: Headache, Dizziness, Numbness, Tingling, Visual changes, Tinnitus, Hearing loss Psychiatric: Denies: Anxiety, Depression, Homicidal Ideations, Suicidal Ideations Vital Signs Height 5 ft Weight: 127 lb 13.89 oz Weight in Pounds 127.9 lbs Pulse Ox 93 Temperature 99 F Pulse Rate 89 Respiratory Rate 18 Blood Pressure 125/65 Blood Pressure Position Semi-Fowlers - Physical Exam General: Alert, Oriented x3, No apparent distress HEENT: Atraumatic, Normocephalic Oropharynx:: Negative for: Dry mucosa, Ulcerated lesions Neck:: Supple, Trachea midline. Negative for: JVD, bilateral Cardiac:: Regular rate, Regular rhythm, Normal S1, Normal S2. Negative for: Murmur Lungs: Clear to auscultation, Excusion symmetrical. Negative for: Rhonchi, Wheezes Abdomen:: Bowel sounds x 4, Soft, Non-tender, Non-distended, Hepatosplenomegaly Extremities:: Negative for: Cyanosis, Edema Skin:: Negative for: Lesions, Rash, Petechiae, Ecchymosis Psychiatric:: Easily distracted, Agitated, Appropriate affect Lymphatics:: Negative for: Cervical lymphadenopathy, Supraclavicular lymphadenopathy, Axillary lymphadenopathy Laboratory Data: Laboratory Tests 10/27/17 10/27/17 10/27/17 Range/Units 14:15 11:47 11:47 D-Dimer Quant (PE/DVT) > 20.00 H* (0.27-0.49) FEU/ug/m Total Bilirubin 1.10 H (0.20-1.00) mg/dL Direct Bilirubin 0.36 H (0.00-0.30) mg/dL AST 92 H (15-37) U/L ALT 98 H (13-56) U/L Alkaline Phosphatase 511 H (45-117) U/L Troponin I 0.069 H 0.063 H (<0.045) ng/mL Total Protein 6.2 L (6.4-8.2) g/dL Albumin 2.7 L (3.2-5.0) g/dL Globulin 3.5 (2.2-4.2) g/dL TSH 2.44 (0.358-3.74) uIU/mL Diagnostic Data: Diagnostic Data Brain CT 10/27/17 06:49 IMPRESSION: Chronic involutional changes of the brain. 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 There is no acute intracranial pathology. Electronically Signed: Pratibha De La Cruz MD at 7:47 EDT , Service support , Chest X-Ray 10/27/17 06:49 IMPRESSION: No radiographic evidence of acute cardiopulmonary disease. Electronically Signed: Jaylyn Iglesias MD at 7:38 EDT , Service support , Assessment and Plan Patient is a 72-year-old woman with past medical history significant for hypertension, chronic pain syndrome, rheumatoid arthritis, who presents with progressive generalized weakness found to have elevated troponin on admission. Difficult to assess given her reluctance to respond to assessment questions. 1. Thrombocytopenia- as evidenced by platelet count of 58,000 in the absence of overt bleeding. This is a new finding. Obtain PT/PTT and repeat platelet count in citrate tube. ITP is not excluded as possible etiology given the context of known autoimmune disease. 2. Elevated D-Dimer- Results of CTAs of chest/abdomen/pelvis pending. In the absence of embolism, possibly elevated in response to overt malignancy. 3. Right breast mass- Unable to palpate thoroughly as patient is exquisitely tender to palpation of upper outer quadrant of right breast. 4. Liver lesions- low attenuation liver lesions were identified of ultrasound obtained 10/13/17. Transaminitis present. Likely contributing to thrombocytopenia. Again, abdominal imaging is pending. Liver biopsy recommended, despite degree of thrombocytopenia. Recommend ER, ND, HER2 to be completed on specimen. Breonna Frances, MSN, SYSTEMS PROGRAMMER, AOCNP Medications: Prescriptions This Visit Medication Instructions Recorded Atorvastatin Calcium [Lipitor] 10 mg PO QHS 10/27/17 Duloxetine Hcl [Cymbalta] 60 mg PO BID 10/27/17 Fluticasone/Vilanterol [Breo 1 each IH DAILY 10/27/17 Ellipta 200-25 Mcg INH] Folic Acid 1 mg PO BIDCM 10/27/17 Oxycodone HCl/Acetaminophen 1 tablet PO Q6H PRN PRN 10/27/17 [Percocet 5/325] Tofacitinib Citrate [Xeljanz Xr] 11 mg PO DAILY 10/27/17 Umeclidinium [place] [Incruse 62.5 mcg IH DAILY 10/27/17 Ellipta] predniSONE tablet 2.5 mg PO QHS 10/27/17 Medications Added to Medication List This Visit Category Date Time Status 0.9% Normal Saline 1,000 ml Med 10/27/17 11:18 Active IV 100 mls/hr Albuterol Aerosols [Ventolin Aerosols] Med 10/27/17 12:00 Active 2.5 mg INHALATION Q6HWA.RT Bisacodyl [Dulcolax] Med 10/27/17 11:18 Active 10 mg PO DAILY PRN PRN Budesonide Aerosol [Pulmicort Aerosol] Med 10/27/17 12:00 Active 0.5 mg INHALATION Q12H.RT Docusate Sodium [Colace] Med 10/27/17 11:18 Active 200 mg PO BID PRN PRN Famotidine [Pepcid] Med 10/27/17 22:00 Pending 20 mg PO BID Guaifenesin [Mucinex] Med 10/27/17 22:00 Active 1,200 mg PO BID Mag Hydrox/Al Hydrox/Simeth [Mylanta II] Med 10/27/17 11:18 Active 30 ml PO Q6H PRN PRN Magnesium Hydroxide [Milk Of Magnesia] Med 10/27/17 11:18 Active 30 ml PO DAILY PRN Ondansetron [Zofran] Med 10/27/17 11:18 Active 4 mg IV Q8H PRN PRN Oxycodone [Oxyir] Med 10/27/17 11:18 Active 5 mg PO Q4H PRN PRN Polyethylene Glycol 3350 [Miralax] Med 10/28/17 10:00 Active 17 gm PO DAILY Zolpidem Tartrate [Ambien (Generic)] Med 10/27/17 11:18 Active 5 mg PO QHS PRN PRN morphine Inj Med 10/27/17 11:18 Active 2 - 4 mg IV Q3H PRN PRN morphine Inj Med 10/27/17 11:43 Active 2 - 4 mg IV Q3H PRN PRN Primary Care Provider: Amelia Argueta Referring Provider:
[2017-10-27] MEDS: Albuterol 2.5 MG/3 ML VIAL.NEB. INHALATION ×2 (15:20→18:33)
--- NOTE | 2017-10-27 15:24 | CON.PCM_ITS ---
Consult Referring Physician: Dr. Swann Subjective Date of Service:: 10/27/17 Chief Complaint: Weakness History of Present Illness: Ms. Sailaja Stephenson is a 72 year old woman with a PMH significant for DM, HTN, COPD, hypothyroidism and rheumatoid arthritis. States she was in her usual state of health until recently she was taken off Xeljanz and RA pain increased , thus a change was made to her narcotic pain medication. Reports x 2 days she has experienced generalized weakness. As a result, she presented to [facility] ED 10/27/17 c/o inability to ambulate independently. She was found to have mildly elevated Troponin and thrombocytopenia, platelet count of 58,000. When questioned further, specifically about any hematology/oncology family history and the presence of a right breast mass and liver lesions noted in her records, patient responds I have been asked so many questions today, I am not answering any more. Past Medical History: Chronic Problems Diastasis recti (Chronic) Type II diabetes mellitus (Chronic) Chronic obstructive lung disease (Chronic) Hypothyroidism (Chronic) Rheumatoid arthritis (Chronic) Benign essential hypertension (Chronic) Past Medical/Surgical History: Past Medical History - Most Recent Inpatient Visit Past Medical History Start: 10/27/17 10: 53 Text: Status: Complete Freq: ONCE Protocol: Document 10/27/17 11:09 DS (Rec: 10/27/17 11:16 DS [id number]) BMI Required to complete PMH What is Patient's BMI 25 Past Medical History Unable History Recalled No Query Text:Pt Unable/Family Not Present Neurologic Medical History Hx Stroke/TIA No Hx Dementia/Alzheimer's No Hx Parkinson's Disease No Hx Seizures No Hx Multiple Sclerosis No Hx Migraines Yes: YRS AGO Comments spinal cord stimulator -for back problems scoliosis Cardiac Medical History VTE Present on Admission No Hx of Deep Vein Thrombosis/VTE/PE No Hx Hypertension Yes Hx Chest Pain/Angina No Hx Heart Attack No Hx Cardiac Surgery/Stents/Etc. No Hx Heart Failure No Hx Pacemaker/AICD No Hx Irregular Heartbeat and/or Afib No Hx Anticoagulant Therapy Yes: ASPIRIN Query Text:(Coumadin, Aspirin, Plavix, Xarelto, etc.) Hx Pain in Legs when Walking/Leg Cramps Yes: N/T Comments osteoarthrhitis Respiratory Medical History Hx COPD Yes Hx Emphysema Yes Hx Smoking No: QUIT 2014 Smoking Status Former smoker Hx Smoking Cessation Counseling No Hx Smoking Exposure No Hx Tobacco Use in last 12 months No Hx of Pipe Smoking No Hx Sleep Apnea No CPAP No BIPAP No Do you snore loudly (louder than talking No or can be heard through closed doors)? Do you often feel tired/ fatigued/ Yes sleepy during daytime? Has anyone observed you stop breathing No during sleep? STOP Results Positive GI Medical History Hx Ulcer Yes: AND HERNIA Hx Hepatitis No Hx Cirrhosis No Hx GI Bleed No Hx Unplanned Weight Loss No Genitourinary Medical History Indwelling Catheter in Place on Arrival/ No Admission Hx Renal Disease No Hx Dialysis No Musculoskeletal History Hx Arthritis Yes: RA Hx Rheumatoid Arthritis Yes Endocrine Medical History Hx Diabetes Yes Hx Thyroid Disease Yes Hematologic Medical History Hx of Blood Transfusion Yes Hx of Transfusion in last 3 Months No Ever experience any problems with No transfusion(s)? Hx of Preganancy in last 3 Months N/A Nurse Filling Out Transfusion & DSLOAN Questions: Date: 10/27/17 Time: 11:15 Psycho/Social Medical History Hx Depression Yes Hx Anxiety Yes Hx Behavior Disorder No Hx Alcohol Use No Hx Substance Use No Other Medical History Hx Blood Disorders No Hx Anemia Yes Hx Cancer No Hx Drug Resistant Organism No Wound/Pressure Injury Present on Arrival No /Admission Query Text:If yes, chart assessment in Shift/Clinical Findings Central Line/PICC/VAD Present on Arrival No /Admission Antibiotics within last 7 days? No Methicillin Resistant Staphylococcus aureus Screening Active MRSA No Risk for Readmission Number of Risk Factors 11 At Risk for Readmission Patient is At Risk For Readmission Patient is eligible for Call Back Y Maternal Family History: No pertinent history Paternal Family History: No pertinent history - Social History Smoking Status: Former smoker Allergies/Adverse Reactions: Allergy/AdvReac Type Severity Reaction Status Date / Time furosemide [From Lasix] Allergy Itching Verified 10/27/17 11:39 shellfish derived Allergy Shortness Verified 10/27/17 06:36 of breath Sulfa (Sulfonamide Allergy Rash Verified 10/27/17 06:36 Antibiotics) Review of Systems Constitutional:: Reports: Weakness, Weight loss - Recently on Trulicity. Denies : Fever, Sweats, Appetite change, Chills Cardiovascular:: Reports: Dyspnea on exertion - unchanged from baseline. Denies : Chest pain, Palpitations, Orthopnea, PND, Shortness of breath Respiratory: Denies: Cough, Hemoptysis, Shortness of Breath, Wheezing Gastrointestinal:: Reports: Abdominal pain - x several weeks, RUQ to midline. Denies: Nausea, Vomiting, Diarrhea, Constipation, Melena, Hematochezia Genitourinary: Denies: Dysuria, Hematuria, Abnormal vaginal bleeding, Flank pain Musculoskeletal:: Reports: Back pain, Arthralgia Skin: Denies: Rash, Skin Changes, Wounds Neurological:: Denies: Headache, Dizziness, Numbness, Tingling, Visual changes, Tinnitus, Hearing loss Psychiatric: Denies: Anxiety, Depression, Homicidal Ideations, Suicidal Ideations Vital Signs Height 5 ft Weight: 127 lb 13.89 oz Weight in Pounds 127.9 lbs Pulse Ox 93 Temperature 99 F Pulse Rate 89 Respiratory Rate 18 Blood Pressure 125/65 Blood Pressure Position Semi-Fowlers - Physical Exam General: Alert, Oriented x3, No apparent distress HEENT: Atraumatic, Normocephalic Oropharynx:: Negative for: Dry mucosa, Ulcerated lesions Neck:: Supple, Trachea midline. Negative for: JVD, bilateral Cardiac:: Regular rate, Regular rhythm, Normal S1, Normal S2. Negative for: Murmur Lungs: Clear to auscultation, Excusion symmetrical. Negative for: Rhonchi, Wheezes Abdomen:: Bowel sounds x 4, Soft, Non-tender, Non-distended, Hepatosplenomegaly Extremities:: Negative for: Cyanosis, Edema Skin:: Negative for: Lesions, Rash, Petechiae, Ecchymosis Psychiatric:: Easily distracted, Agitated, Appropriate affect Lymphatics:: Negative for: Cervical lymphadenopathy, Supraclavicular lymphadenopathy, Axillary lymphadenopathy Laboratory Data: Laboratory Tests 3 10/27/17 10/27/17 10/27/17 Range/Units 14:15 11:47 11:47 D-Dimer Quant (PE/DVT) > 20.00 H* (0.27-0.49) FEU/ug/m Total Bilirubin 1.10 H (0.20-1.00) mg/dL Direct Bilirubin 0.36 H (0.00-0.30) mg/dL AST 92 H (15-37) U/L ALT 98 H (13-56) U/L Alkaline Phosphatase 511 H (45-117) U/L Troponin I 0.069 H 0.063 H (<0.045) ng/mL Total Protein 6.2 L (6.4-8.2) g/dL Albumin 2.7 L (3.2-5.0) g/dL Globulin 3.5 (2.2-4.2) g/dL TSH 2.44 (0.358-3.74) uIU/mL Diagnostic Data: Diagnostic Data Brain CT 10/27/17 06:49 IMPRESSION: Chronic involutional changes of the brain. 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 There is no acute intracranial pathology. Electronically Signed: Pratibha De La Cruz MD at 7:47 EDT , Service support , Chest X-Ray 10/27/17 06:49 IMPRESSION: No radiographic evidence of acute cardiopulmonary disease. Electronically Signed: Jaylyn Iglesias MD at 7:38 EDT , Service support , Assessment and Plan Patient is a 72-year-old woman with past medical history significant for hypertension, chronic pain syndrome, rheumatoid arthritis, who presents with progressive generalized weakness found to have elevated troponin on admission. Difficult to assess given her reluctance to respond to assessment questions. 1. Thrombocytopenia- as evidenced by platelet count of 58,000 in the absence of overt bleeding. This is a new finding. Obtain PT/PTT and repeat platelet count in citrate tube. ITP is not excluded as possible etiology given the context of known autoimmune disease. 2. Elevated D-Dimer- Results of CTAs of chest/abdomen/pelvis pending. In the absence of embolism, possibly elevated in response to overt malignancy. 3. Right breast mass- Unable to palpate thoroughly as patient is exquisitely tender to palpation of upper outer quadrant of right breast. 4. Liver lesions- low attenuation liver lesions were identified of ultrasound obtained 10/13/17. Transaminitis present. Likely contributing to thrombocytopenia. Again, abdominal imaging is pending. Liver biopsy recommended , despite degree of thrombocytopenia. Recommend ER, OK, HER2 to be completed on specimen. Breonna Frances, MSN, [employer], AOCNP Medications: Prescriptions This Visit Medication Instructions Recorded Atorvastatin Calcium [Lipitor] 10 mg PO QHS 10/27/17 Duloxetine Hcl [Cymbalta] 60 mg PO BID 10/27/17 Fluticasone/Vilanterol [Breo 1 each IH DAILY 10/27/17 Ellipta 200-25 Mcg INH] Folic Acid 1 mg PO BIDCM 10/27/17 Oxycodone HCl/Acetaminophen 1 tablet PO Q6H PRN PRN 10/27/17 [Percocet 5/325] Tofacitinib Citrate [Xeljanz Xr] 11 mg PO DAILY 10/27/17 Umeclidinium [place] [Incruse 62.5 mcg IH DAILY 10/27/17 Ellipta] predniSONE tablet 2.5 mg PO QHS 10/27/17 Medications Added to Medication List This Visit Category Date Time Status 0.9% Normal Saline 1,000 ml Med 10/27/17 11:18 Active IV 100 mls/hr Albuterol Aerosols [Ventolin Aerosols] Med 10/27/17 12:00 Active 2.5 mg INHALATION Q6HWA.RT Bisacodyl [Dulcolax] Med 10/27/17 11:18 Active 10 mg PO DAILY PRN PRN Budesonide Aerosol [Pulmicort Aerosol] Med 10/27/17 12:00 Active 0.5 mg INHALATION Q12H.RT Docusate Sodium [Colace] Med 10/27/17 11:18 Active 200 mg PO BID PRN PRN Famotidine [Pepcid] Med 10/27/17 22:00 Pending 20 mg PO BID Guaifenesin [Mucinex] Med 10/27/17 22:00 Active 1,200 mg PO BID Mag Hydrox/Al Hydrox/Simeth [Mylanta II] Med 10/27/17 11:18 Active 30 ml PO Q6H PRN PRN Magnesium Hydroxide [Milk Of Magnesia] Med 10/27/17 11:18 Active 30 ml PO DAILY PRN Ondansetron [Zofran] Med 10/27/17 11:18 Active 4 mg IV Q8H PRN PRN Oxycodone [Oxyir] Med 10/27/17 11:18 Active 5 mg PO Q4H PRN PRN Polyethylene Glycol 3350 [Miralax] Med 10/28/17 10:00 Active 17 gm PO DAILY Zolpidem Tartrate [Ambien (Generic)] Med 10/27/17 11:18 Active 5 mg PO QHS PRN PRN morphine Inj Med 10/27/17 11:18 Active 2 - 4 mg IV Q3H PRN PRN morphine Inj Med 10/27/17 11:43 Active 2 - 4 mg IV Q3H PRN PRN Primary Care Provider: Amelia Argueta Referring Provider:
[2017-10-27] MEDS: Folic Acid 1 MG Tablet PO (16:30)
--- NOTE | 2017-10-27 17:02 | CHAPLAIN ---
patient was offered support; pt said that she had just gotten in a comfortable position after being in pain and would like turn out to return tomorrow
[2017-10-27] MEDS: Morphine 4 MG/ML Syringe IV (17:18)
--- NOTE | 2017-10-27 18:12 | PCM.DC ---
- Discharge Diagnoses Current Active Problems: Current Active and Chronic Problems General weakness (Acute) Allergies/Adverse Reactions: Allergies furosemide [From Lasix] Allergy (Verified 10/27/17 11:39) Itching shellfish derived Allergy (Verified 10/27/17 06:36) Shortness of breath Sulfa (Sulfonamide Antibiotics) Allergy (Verified 10/27/17 06:36) Rash Medications to take at Discharge Levothyroxine [Synthroid] 75 mcg PO UD 05/18/14 Potassium Chloride [K-Dur] 20 meq PO DAILY 05/18/14 Valsartan [Diovan] 320 mg PO DAILY 05/18/14 Gabapentin [Neurontin] 600 mg PO TID PRN 08/18/14 Zolpidem Tartrate [Ambien] 10 mg PO QHS 08/18/14 Albuterol IH (ProAir) [Proair Hfa] 1 - 2 puff INHALATION Q4H PRN PRN 12/29/14 Aspirin [Aspirin, Baby] 81 mg PO DAILY@0800 12/29/14 Ondansetron [Zofran] 8 mg PO Q8H PRN PRN #30 tablet 12/30/14 Pantoprazole Sodium [Protonix] 40 mg PO BID #90 tablet 12/30/14 predniSONE tablet 5 mg PO BIDCM 01/19/16 Atorvastatin Calcium [Lipitor] 10 mg PO QHS 10/27/17 Duloxetine Hcl [Cymbalta] 60 mg PO BID 10/27/17 Fluticasone/Vilanterol [Breo Ellipta 200-25 Mcg INH] 1 each IH DAILY 10/27/17 Folic Acid 1 mg PO BIDCM 10/27/17 Oxycodone HCl/Acetaminophen [Percocet 5/325] 1 tablet PO Q6H PRN PRN 10/27/17 Tofacitinib Citrate [Xeljanz Xr] 11 mg PO DAILY 10/27/17 Umeclidinium [place] [Incruse Ellipta] 62.5 mcg IH DAILY 10/27/17 predniSONE tablet 2.5 mg PO QHS 10/27/17 Primary Care Physician: Amelia Argueta MD [Primary Care Provider] - Test Results: Test results from this visit will be discussed in further detail at your follow-up appointment, if applicable. Proposed Discharge Date: 10/27/17
--- NOTE | 2017-10-27 18:14 | DS.PCM_ITS ---
Discharge Date and Diagnosis - Problem List Patient Problems: Active and Suspected Problems General weakness (Acute) Date of Admission: 10/27/17 Date of Discharge: 10/27/17 - Primary Discharge Diagnosis Active and Suspected Problems General weakness (Acute) Saddle pulmonary embolism Pancreatic mass Liver lesions suspected to be secondary to metastatic disease - Secondary Discharge Diagnosis Chronic Problems Diastasis recti (Chronic) Type II diabetes mellitus (Chronic) Chronic obstructive lung disease (Chronic) Hypothyroidism (Chronic) Rheumatoid arthritis (Chronic) Benign essential hypertension (Chronic) Hospital Course and Treatment Imaging Results: Clinical Impression(s) from Imaging Studies Brain CT 10/27/17 06:49 IMPRESSION: Chronic involutional changes of the brain. 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 There is no acute intracranial pathology. Electronically Signed: Pratibha De La Cruz MD at 7:47 EDT , Service support , Chest X-Ray 10/27/17 06:49 IMPRESSION: No radiographic evidence of acute cardiopulmonary disease. Electronically Signed: Jaylyn Iglesias MD at 7:38 EDT , Service support , Abdomen CTA 10/27/17 11:18 IMPRESSION: 1. Saddle embolus of the pulmonary arteries. There is minimal peripheral pulmonary artery thrombosis. 2. Atherosclerosis of the thoracic aorta without aneurysm or dissection. 3. Single calcified granuloma in the left upper lobe. Lungs are otherwise clear. 4. Large retrocardiac hiatal hernia. 5. Hypodense masses within the liver. 6. Pancreatic tail mass. Electronically Signed: Derrell Flores DO at 17:04 EDT Tel [phone], Service support , Chest CTA 10/27/17 11:18 IMPRESSION: 1. Saddle embolus of the pulmonary arteries. There is minimal peripheral pulmonary artery thrombosis. 2. Atherosclerosis of the thoracic aorta without aneurysm or dissection. 3. Single calcified granuloma in the left upper lobe. Lungs are otherwise clear. 4. Large retrocardiac hiatal hernia. 5. Hypodense masses within the liver. 6. Pancreatic tail mass. Electronically Signed: Derrell Flores DO at 17:04 EDT Tel [phone], Service support , Pelvis CTA 10/27/17 11:18 IMPRESSION: 1. Saddle embolus of the pulmonary arteries. There is minimal peripheral pulmonary artery thrombosis. 2. Atherosclerosis of the thoracic aorta without aneurysm or dissection. 3. Single calcified granuloma in the left upper lobe. Lungs are otherwise clear. 4. Large retrocardiac hiatal hernia. 5. Hypodense masses within the liver. 6. Pancreatic tail mass. Electronically Signed: Derrell Flores at 17:04 EDT Tel [phone], Service support , Operations: None Summary of Care Provided: Patient is a 72-year-old lady with past medical history significant for hypertension, chronic pain syndrome, rheumatoid arthritis, who presents with progressive generalized weakness found to have elevated troponin on admission in view of patient elevated troponin subsequently ordered a d-dimer which came back elevated ordered CT of the abdomen and pelvis as well as chest results of which as above. Patient was noted to have a saddle pulmonary embolism. Given the fact that patient platelet count was only 58 did have discussions with the patient on the need for patient to be transferred to a tertiary care center for an IVC filter placement. This was discussed with patient primary care physician Dr. Dr. Argueta prior to patient being transferred to [facility] for subsequent care. Time spent on transfer process 58 minute. Home Medications: Medications to take at Discharge Levothyroxine [Synthroid] 75 mcg PO UD 05/18/14 Potassium Chloride [K-Dur] 20 meq PO DAILY 05/18/14 Valsartan [Diovan] 320 mg PO DAILY 05/18/14 Gabapentin [Neurontin] 600 mg PO TID PRN 08/18/14 Zolpidem Tartrate [Ambien] 10 mg PO QHS 08/18/14 Albuterol IH (ProAir) [Proair Hfa] 1 - 2 puff INHALATION Q4H PRN PRN 12/29/14 Aspirin [Aspirin, Baby] 81 mg PO DAILY@0800 12/29/14 Ondansetron [Zofran] 8 mg PO Q8H PRN PRN #30 tablet 12/30/14 Pantoprazole Sodium [Protonix] 40 mg PO BID #90 tablet 12/30/14 predniSONE tablet 5 mg PO BIDCM 01/19/16 Atorvastatin Calcium [Lipitor] 10 mg PO QHS 10/27/17 Duloxetine Hcl [Cymbalta] 60 mg PO BID 10/27/17 Fluticasone/Vilanterol [Breo Ellipta 200-25 Mcg INH] 1 each IH DAILY 10/27/17 Folic Acid 1 mg PO BIDCM 10/27/17 Oxycodone HCl/Acetaminophen [Percocet 5/325] 1 tablet PO Q6H PRN PRN 10/27/17 Tofacitinib Citrate [Xeljanz Xr] 11 mg PO DAILY 10/27/17 Umeclidinium [place] [Incruse Ellipta] 62.5 mcg IH DAILY 10/27/17 predniSONE tablet 2.5 mg PO QHS 10/27/17 Primary Care Physician: Amelia Argueta MD [Primary Care Provider] - Medical Necessity - Tobacco Use Smoking Status: Former smoker Meaningful Use Info Meaningful Use Diagnoses (Choose all that apply): VTE - VTE Anticoag overlap given w/in hospital stay or rx'd at dc?: No Pt receive overlap for 5 days?: No Reason overlap not ordered, prescribed, or given for 5 days: Medical Contraindication Code Visit OBSV E&M: 14977 Observ/hosp same date L3
--- NOTE | 2017-10-27 18:30 | NURSING ---
CALLED REPORT TO TONYA FROM [facility]. NO QUESTIONS.
[2017-10-27] MEDS: Budesonide Respules 0.5 MG/2 ML AMPUL.NEB. INHALATION (18:33)
== END 2017-10-27 20:00 | disposition short-term general hospital (02) | DRG 175 ==
LOC: ED 07:00 → PCU 10:31
PROVIDERS: Admitting Provider Internal Medicine; Emergency Provider Emergency Medicine; Family Provider Internal Medicine; PCP Internal Medicine; Visit Provider Internal Medicine
DX: I26.92 Saddle embolus of pulmonary artery without acute cor pulmonale (principal); Q79.59 Other congenital malformations of abdominal wall; C78.7 Secondary malignant neoplasm of liver and intrahepatic bile duct; D69.6 Thrombocytopenia, unspecified; J44.9 Chronic obstructive pulmonary disease, unspecified; I10 Essential (primary) hypertension; E03.9 Hypothyroidism, unspecified; F32.9 Major depressive disorder, single episode, unspecified; M06.9 Rheumatoid arthritis, unspecified; G89.4 Chronic pain syndrome; E11.8 Type 2 diabetes mellitus with unspecified complications; K86.9 Disease of pancreas, unspecified; C80.1 Malignant (primary) neoplasm, unspecified; N63.0 Unspecified lump in unspecified breast; Z87.891 Personal history of nicotine dependence
CPT/HCPCS: 70450; 71045; 71275; 72191; 74175; 80053; 80076; 81001; 82962; 83690; 84443; 84484; 85025; 85379; 93005; 93306; 94640; 99285; J7030; Q9967; A4216